=== PATIENT | male | born 1950 | race Caucasian/White ===

== ENCOUNTER → 2017-10-22 | Outpatient (CLI) | payer OTHER ==
--- NOTE | 2017-10-22 17:36 | DIAGNOSTIC IMAGING REPORT ---
CERVICAL SPINE MRI HISTORY: CERVICAL PAIN TECHNIQUE: Multiplanar multisequence MRI of the cervical spine was performed without the use of contrast. COMPARISON STUDY: Outside hospital cervical spine 10/17/2017. FINDINGS: Straightening of the cervical spine. Alignment is intact. No fractures identified. 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 This is likely due to long-standing degenerative change. The visible posterior fossa is unremarkable. The cervical spinal cord demonstrates a normal signal intensity. Moderate to severe disc space narrowing at C3-C4, C4-C5, C5-C6, and C6-C7. C2-C3: Mild right-sided neural foraminal narrowing. No synovial central canal or left-sided neural foraminal narrowing. C3-C4: Broad-based posterior disc osteophyte complex which abuts but does not significantly deform the anterior cord. There are severe bilateral neural foraminal narrowing due to the disc bulge and uncovertebral hypertrophy. C4-C5: Broad-based posterior disc ossified complex with a small focal central disc protrusion. This abuts and results in mild anterior cord deformity. This measures 5 x 4 mm. There is severe right neural foraminal narrowing. No significant left-sided neural foraminal narrowing. C5-C6: Broad-based posterior disc ossified complex asymmetric to the right. This abuts but does not significantly deform the cord. There is mild right-sided neural foraminal narrowing. C6-C7: Broad-based posterior disc osteophyte complex without significant central canal or neural foraminal narrowing. C7-T1: No significant central canal or neural foraminal narrowing. IMPRESSION: 1. Multilevel cervical spondylosis as described above most pronounced at the C4-C5 level where there is a small focal central disc protrusion which abuts and deforms the anterior cord. 2. Multilevel bilateral neural foraminal narrowing as described above. 3. Edema both within and surrounding the right C2-C3 facets. This is likely due to the severe osteoarthritis at this location. 4. Straightening of the cervical spine. Electronically signed by: Hardy Crandall M.D. 10/22/2017 5:34 PM Dictated Date/Time: 10/22/2017 5:27 PM
== END | disposition home or self-care (01) ==
LOC: C.MRIBC 16:31
PROVIDERS: ATTEND Orthopaedic Surgery Orthopaedic Surgery of the Spine
DX: M47.22 Other spondylosis with radiculopathy, cervical region (principal)